=== PATIENT | female | born 1985 | race Hispanic/Latino ===

== ENCOUNTER 2024-08-02 08:35 | Emergency (ER) | payer BC, MEDICARE ==
[~2024-08-02] VITALS: Ht 149.9 cm; Wt 92.5 kg
[~2024-08-02 08:35] MED LIST: CLONAZEPAM0.5 MG PO; NORCO 10MG-325MG1 EA PO; RANITIDINE; ZOFRAN
[2024-08-02 09:13] LABS: BASOPHILS % 0.4 % (0.0-1.0); EOSINOPHILS % 0.1 % (0.0-6.0); HEMATOCRIT 39.5 % (34.2-44.1); HEMOGLOBIN 13.1 g/dL (12.0-16.0); LYMPHOCYTES # (AUTO) 1.7 (1.0-3.2); LYMPHOCYTES % 21.3 % (18.0-39.1); MEAN CORPUSCULAR HEMOGLOBIN 28.7 pg (28-32); MEAN CORPUSCULAR HGB CONC 33.2 g/dL (31-35); MEAN CORPUSCULAR VOLUME 86.6 fL (81-99); MONOCYTES # (AUTO) 0.3 (0.2-0.8); MONOCYTES % 4.4 % (4.4-11.3); NEUTROPHILS # (AUTO) 5.7 (2.1-6.9); NEUTROPHILS % 73.5 % (38.7-80.0); PLATELET COUNT 275 x10e3/uL (140-360); RED BLOOD COUNT 4.56 x10e6/uL (3.6-5.1); RED CELL DISTRIBUTION WIDTH 14.6 % (11.7-14.4); WHITE BLOOD COUNT 7.74 x10e3/uL (4.8-10.8)
[2024-08-02] MEDS: SODIUM CHLORIDE 0.9% 1000ML 1,000 ML IV STA ×2 (09:20→09:23)
[2024-08-02] MEDS: KETOROLAC TROMETHAMINE 30 MG/ML VIAL IV STA (09:21)
[2024-08-02] MEDS: PROMETHAZINE 25MG/ NS 50ML (IV) IV ONE (09:22)
[2024-08-02] MEDS: DIPHENHYDRAMINE HCL INJ 50 MG/ML VIAL IV ONE (09:22)
[2024-08-02 09:29] LABS: ALANINE AMINOTRANSFERASE 14 IU/L (0-55); ALBUMIN 4.3 g/dL (3.5-5.0); ALBUMIN/GLOBULIN RATIO 1.2 (0.8-2.0); ALKALINE PHOSPHATASE 51 IU/L (40-150); ANION GAP 15.7 mmol/L (8-16); BILIRUBIN,TOTAL 0.5 mg/dL (0.2-1.2); BLOOD UREA NITROGEN 12 mg/dL (7-26); BUN/CREATININE RATIO 16 (6-25); CALCIUM 9.6 mg/dL (8.4-10.2); CARBON DIOXIDE 22 mmol/L (22-29); CHLORIDE 105 mmol/L (98-107); CREATINE KINASE 78 IU/L (29-168); CREATININE, SERUM 0.74 mg/dL (0.57-1.11); EST GLOMERULAR FILTRATION RATE 105 ML/MIN (>=60); GLUCOSE 93 mg/dL (74-118); POTASSIUM 3.7 mmol/L (3.5-5.1); SODIUM 139 mmol/L (136-145); TOTAL PROTEIN 7.9 g/dL (6.5-8.1)
[2024-08-02 09:36] LABS: TROPONIN I < 0.001 ng/mL (0-0.300)
[2024-08-02] MEDS ORDERED: PHENERGAN SUPP25 MG PR (10:43)
[2024-08-02] MEDS ORDERED: ONDANSETRON ODT4 MG PO (10:43)
[2024-08-02] MEDS: ONDANSETRON HCL INJ 2MG/ML 2ML 2 MG/ML VIAL IV STA (11:01)
[2024-08-02] MEDS: HYDROCODONE/APAP 7.5MG-325MG 1 EA TAB PO ONE (11:02)
[2024-08-02] MEDS ORDERED: ULTRAM 50MG50 MG PO (11:20)
[2024-08-02 11:50] VITALS: PULSE 77; RESP 15; TEMP 98.5; O2SAT 100
== END 2024-08-02 11:52 | disposition home or self-care (01) ==
LOC: ER 08:46
DX: R11.2 Nausea with vomiting, unspecified (principal); T50.995A Adverse effect of other drugs, medicaments and biological substances, initial encounter; Y92.89 Other specified places as the place of occurrence of the external cause; R73.03 Prediabetes; F17.210 Nicotine dependence, cigarettes, uncomplicated
CPT/HCPCS: 36415; 80053; 82550; 82948; 83735; 84484; 84702; 85025; 99284; J1200; J1885; J2405; J2470; J2550; J7030